=== PATIENT | female | born 1980 | race Caucasian/White ===

== ENCOUNTER 2016-12-08 07:46 | Day surgery (SDC) | payer OTHER ==
[2016-12-08] VITALS (7 sets, daily range): BP systolic 100–119; BP diastolic 52–77; PULSE 62–79; RESP 12–17; Ht 165.1 cm; Wt 89.0 kg
[~2016-12-08] VITALS: Ht 165.1 cm; Wt 89.0 kg
[~2016-12-08 07:46] MED LIST: CEFAZOLIN 1 GM INJ ONE
[2016-12-08] MEDS ORDERED: LACTATED RINGER'S 1,000 ML IV SCH (09:00)
--- NOTE | 2016-12-08 09:34 | RADRPT ---
PROCEDURE: XR Chest. CLINICAL INDICATION: PRE OP TECHNIQUE: Single frontal chest x-ray. COMPARISON: None. FINDINGS: The lungs are clear of acute infiltrates, edema, effusions, or masses.. The cardiomediastinal silho uette is unremarkable. The osseous structures are intact. IMPRESSION: No acute cardiopulmonary disease. RPTAT: EE .Andreas Miramontes MD, MD Date Time Electronically viewed and signed by .Andreas Miramontes MD, MD on 12/08/2016 09:34 .L/
--- NOTE | 2016-12-08 10:53 | HPN ---
Date/Time of Note Date/Time of Note DATE: 12/08/16 TIME: 10:53 Interval H&P Admission Note Pt. seen H&P reviewed: No system changes ALEA ALMANZA MD Dec 08, 2016 10:53
[2016-12-08] MEDS ORDERED: BACITRACIN/POLYMYXIN 28.35 GM OINT TOP ONE (11:01)
[2016-12-08] MEDS ORDERED: LIDOCAINE 2%/EPI 30 ML INJ ONE (11:01)
[2016-12-08] MEDS ORDERED: PROPOFOL 20 ML ONE (11:07)
[2016-12-08] MEDS ORDERED: METOCLOPRAMIDE 10 MG INJ ONE (11:07)
[2016-12-08] MEDS ORDERED: MIDAZOLAM 1 MG/ML 2 ML INJ ONE (11:07)
[2016-12-08] MEDS ORDERED: FENTAnyl 50 MCG/ML VIAL ONE (11:21)
[2016-12-08] MEDS ORDERED: METOCLOPRAMIDE 10 MG INJ IV PRN (11:30)
[2016-12-08] MEDS ORDERED: ONDANSETRON 4 MG INJ IV PRN ×2 (11:30→12:30)
[2016-12-08] MEDS ORDERED: OXYCODONE/ACETAMINOPHEN (5/325) TAB PO PRN ×2 (11:30)
[2016-12-08] MEDS ORDERED: DIPHENHYDRAMINE 50 MG INJ IV PRN (11:30)
[2016-12-08] MEDS ORDERED: HYDROmorphONE (0.2 MG/ML) 10ML SYG IV PRN ×3 (11:30)
[2016-12-08] MEDS ORDERED: MEPERIDINE 25 MG INJ IV PRN (11:30)
[2016-12-08] MEDS ORDERED: BUPIVACAINE 0.5%/EPI (SDV) 10 ML INJ ONE (11:31)
[2016-12-08] MEDS ORDERED: morphine 2 MG INJ IV PRN (12:30)
[2016-12-08] MEDS ORDERED: HYDROCODONE/APAP (5/325) TAB PO PRN (12:30)
--- NOTE | 2016-12-08 12:57 | OPR ---
Date/Time of Note Date/Time of Note DATE: 12/08/16 TIME: 12:52 Operative Report Free Text/Dictation Plastic Surgery Operative Report Preoperative diagnosis: right lateral brow dermoid cyst Postoperative diagnosis:same Procedure:excision of right lateral brow dermoid cyst Surgeon:bettye Lion.:n/a Anesthesia:gen EBL:min IV fluids:per flow sheet Findings:n/a Complications:none Dispo: home Indications for procedure: 36-year-old female presents today for excision of a right lateral brow dermoid cyst. The risks, benefits, alternatives of performing this procedure were discussed with the patient including the risks of bleeding, infection, wound healing problems, cosmetic deformity, distortion of normal structures, recurrence, need for revision. It was also specifically discussed that the left frontal branch of the facial nerve was at risk due to the location of the lesion. The patient and her understand the consequence of a nerve injury in this area that the lateral brow would be paralyzed. We discussed additional incision choices, and she prefers an incision underneath her eyebrow extending laterally. The patient states that she understands these risks and would like to proceed with the procedure. All questions were answered, no guarantees were given with regards to the outcome of this procedure. Description of procedure: The patient was brought to the operating room at [facility] where general anesthesia was induced and the patient was prepped and draped in usual sterile fashion. First, a total of 5 cc of a solution containing 1% lidocaine with 1: 200,000 epinephrine and 0.25% Marcaine with 1: 200,000 epinephrine was injected into the planned incision site and periphery of the lesion. Incision was then made with a 15 blade. Dissection carried out to the surface of the lesion. A hemostat was used to spread bluntly along the surface of the lesion and it was well demarcated. The lesion was found to be intimately associated with the periosteum. The hemostat , scissors, and [place] elevator were used to carefully dissect the lesion free. There was then removed in its entirety. The wound was irrigated with saline. Hemostasis was achieved with electrocautery. The wound was carefully inspected and there were no remnants of the mass remaining. Therefore, incision was then closed in layers with a deep layer of 5-0 Vicryl sutures followed by 5-0 Vicryl suture on the muscle and 5-0 Vicryl suture in the dermis and then 5-0 nylon suture on the skin. Final size of the mass was 2.5cm. The patient tolerated procedure well, there were no complications, follow-up information and wound care instructions were given ALEA ALMANZA MD Dec 08, 2016 12:57
== END 2016-12-08 13:45 | disposition home or self-care (01) ==
LOC: SDS 07:46
PROVIDERS: ATTEND Surgery Plastic and Reconstructive Surgery
DX: D23.11 Other benign neoplasm of skin of right eyelid, including canthus (principal)
CPT/HCPCS: 11443; 12051; 71010; 84703; 88304; J0690; J2250; J2765; J3010; Z7512; Z7610